=== PATIENT | female | born 1990 | race African-American/Black ===

== ENCOUNTER 2017-02-09 15:07 | Emergency (ER) | payer SELFPAY ==
[~2017-02-09] VITALS: Ht 172.7 cm; Wt 85.0 kg
[~2017-02-09 15:07] MED LIST: PENI250T59 PO
[2017-02-09 15:11] VITALS: BP 104/60; PULSE 70; RESP 12; TEMP 98.2; O2SAT 98
--- NOTE | 2017-02-09 15:16 | PD ---
Physical Exam Date Seen by Provider: Feb 09, 2017 Time Seen by Provider: 15:14 Data Data Last Documented VS Vital Signs Date Time Temp Pulse Resp B/P (MAP) Pulse Ox O2 Delivery O2 Flow Rate FiO2 02/09/17 15:11 98.2 70 12 104/60 (75) 98 MDM Supervised Visit with RADHA: No Narrative Course 26-year-old female presents to the ED for evaluation of pruritic rash on the right axilla and lower abdomen 3 days. LMP 01/16. Vitals reviewed. Patient seen in triage, awaiting bed placement. Sandra Adames Feb 09, 2017 15:16
== END 2017-02-09 16:18 | disposition left against medical advice (07) ==
LOC: NED 15:07
DX: R21 Rash and other nonspecific skin eruption (principal); Z53.21 Procedure and treatment not carried out due to patient leaving prior to being seen by health care provider
CPT/HCPCS: 99281